=== PATIENT | male | born 1975 | race Caucasian/White ===

== ENCOUNTER 2023-07-22 07:09 | Inpatient (IN) | payer SELFPAY ==
[2023-07-22] MEDS ORDERED: ASPIRIN 81 MG CHEWABLE TABLET ONE ×2 (07:18→07:27)
[2023-07-22] MEDS ORDERED: METOPROLOL TARTRATE 5 MG/5 ML INJ IV ONE (07:27)
[2023-07-22] MEDS ORDERED: METOPROLOL TAR 50 MG TAB ONE (07:27)
[2023-07-22] MEDS ORDERED: NA CHLORIDE 0.9% 1,000 ML ONE ×2 (07:28→08:48)
[2023-07-22 07:44] LABS: SARS-CoV-2 Antigen Rapid Res Negative (Negative)
[2023-07-22 07:48] LABS: Absolute Lymphocytes (CBC) 1.4 K/uL (0.7-4.9); Hematocrit 47.5 % (39.6-49.0); MCV 85.1 fL (80-100); MPV 9.5 fL (7.6-11.3); Platelets 367 thou/uL (152-406); RBC Red Blood Cell Count 5.58 M/uL (4.33-5.43)
--- NOTE | 2023-07-22 07:48 | EDPHYS ---
Physician Documentation [facility] Name: Zeferino Moss Age: 48 yrs Sex: Male : 1975 Arrival Date: 07/22/2023 Time: 07:09 Bed 20 Private MD: ED Physician Yifan Ferraro HPI: 07/22 07:25 This 48 yrs old Male presents to ER via Ambulatory with complaints of Chest brennan Pain, Breathing Difficulty. 07:25 The patient or guardian reports chest pain that is located primarily in the anterior brennan chest wall, bilaterally. Onset: 3 day(s) ago. The pain does not radiate. Associated signs and symptoms: The patient has no apparent associated signs or symptoms. The chest pain is described as aching. Duration: The patient or guardian reports multiple episodes, with no pattern. Modifying factors: The symptoms are alleviated by remaining still, the symptoms are aggravated by activity, breathing, deep breath. Severity of pain: At its worst the pain was moderate in the emergency department the pain is unchanged. Historical: - Allergies: 07:17 No Known Allergies; ll1 - PMHx: 07:17 Hypertensive disorder; Diverticulitis; ll1 - PSHx: 07:17 None; ll1 - Immunization history:: Adult Immunizations up to date. - Social history:: Smoking status: Patient reports use of chewing tobacco. Patient denies any tobacco usage or history of. - Family history:: not pertinent. ROS: 07:25 Constitutional: Negative for fever, chills, and weight loss, Eyes: Negative for injury, brennan pain, redness, and discharge, ENT: Negative for injury, pain, and discharge, Neck: Negative for injury, pain, and swelling, Respiratory: Negative for shortness of breath, cough, wheezing, and pleuritic chest pain, Abdomen/GI: Negative for abdominal pain, nausea, vomiting, diarrhea, and constipation, Back: Negative for injury and pain, : Negative for injury, bleeding, discharge, and swelling, MS/Extremity: Negative for injury and deformity, Skin: Negative for injury, rash, and discoloration, Neuro: Negative for headache, weakness, numbness, tingling, and seizure, Psych: Negative for depression, anxiety, suicide ideation, homicidal ideation, and hallucinations, Allergy/Immunology: Negative for hives, rash, and allergies, Endocrine: Negative for neck swelling, polydipsia, polyuria, polyphagia, and marked weight changes, Hematologic/Lymphatic: Negative for swollen nodes, abnormal bleeding, and unusual bruising, 07:25 Cardiovascular: Positive for chest pain, of the chest, Exam: 07:25 Constitutional: This is a well developed, well nourished patient who is awake, alert, brennan and in no acute distress. Head/Face: Normocephalic, atraumatic. Eyes: Pupils equal round and reactive to light, extra-ocular motions intact. Lids and lashes normal. Conjunctiva and sclera are non-icteric and not injected. Cornea within normal limits. Periorbital areas with no swelling, redness, or edema. ENT: Nares patent. No nasal discharge, no septal abnormalities noted. Tympanic membranes are normal and external auditory canals are clear. Oropharynx with no redness, swelling, or masses, exudates, or evidence of obstruction, uvula midline. Mucous membranes moist. Neck: Trachea midline, no thyromegaly or masses palpated, and no cervical lymphadenopathy. Supple, full range of motion without nuchal rigidity, or vertebral point tenderness. No Meningismus. Chest/axilla: Normal chest wall appearance and motion. Nontender with no deformity. No lesions are appreciated. Cardiovascular: Regular rate and rhythm with a normal S1 and S2. No gallops, murmurs, or rubs. Normal PMI, no JVD. No pulse deficits. Respiratory: Lungs have equal breath sounds bilaterally, clear to auscultation and percussion. No rales, rhonchi or wheezes noted. No increased work of breathing, no retractions or nasal flaring. Abdomen/GI: Soft, non-tender, with normal bowel sounds. No distension or tympany. No guarding or rebound. No evidence of tenderness throughout. Back: No spinal tenderness. No costovertebral tenderness. Full range of motion. Male : Normal genitalia with no discharge or lesions. Skin: Warm, dry with normal turgor. Normal color with no rashes, no lesions, and no evidence of cellulitis. MS/ Extremity: Pulses equal, no cyanosis. Neurovascular intact. Full, normal range of motion. Neuro: Awake and alert, GCS 15, oriented to person, place, time, and situation. Cranial nerves II-XII grossly intact. Motor strength 5/5 in all extremities. Sensory grossly intact. Cerebellar exam normal. Normal gait. Psych: Awake, alert, with orientation to person, place and time. Behavior, mood, and affect are within normal limits. 07:25 ECG was reviewed by the Attending Physician. 07:45 Musculoskeletal/extremity: DVT Exam: No signs of deep vein thrombosis. no pain, no brennan swelling, no tenderness, negative Homans' sign noted on exam, no appreciated bluish discoloration, no erythema, no increased warmth, Vital Signs: 07:17 BP 124 / 98; Pulse 122; Resp 17; Temp 97.8; Pulse Ox 99% ; Weight 79.38 kg; Height 5 ll1 ft. 9 in. ; Pain 5/10; 07:38 BP 104 / 83; Pulse 95; Resp 14 S; Pulse Ox 100% on R/A; kc6 07:53 BP 91 / 71; Pulse 94; Resp 14 S; Pulse Ox 100% on R/A; kc6 08:07 BP 90 / 75; Pulse 92; Resp 16 S; Pulse Ox 100% on R/A; kc6 08:15 BP 84 / 70; Pulse 91; Resp 14 S; Pulse Ox 100% on R/A; kc6 08:18 BP 88 / 65; Pulse 92; Resp 14 S; Pulse Ox 100% on R/A; kc6 08:42 BP 87 / 72; Pulse 88; Resp 15 S; Pulse Ox 99% on R/A; kc6 08:45 BP 89 / 77; Pulse 81; Resp 13 S; Pulse Ox 100% on 2 lpm NC; kc6 09:04 BP 83 / 73; Pulse 86; Resp 15 S; Pulse Ox 100% on 2 lpm NC; kc6 09:08 BP 86 / 68; Pulse 88; Resp 14 S; Pulse Ox 100% on 2 lpm NC; kc6 07:17 Body Mass Index 25.84 (79.38 kg, 175.26 cm) ll1 07:17 Pain Scale: Adult ll1 Amber Coma Score: 07:29 Eye Response: spontaneous(4). Motor Response: obeys commands(6). Verbal Response: brennan oriented(5). Total: 15. MDM: 07:12 Patient medically screened. brennan 07:27 Differential diagnosis: abnormal EKG, acute myocardial infarction, acute pericarditis, brennan anxiety, chest wall pain, Cholelithiasis hiatal hernia, myocarditis, pancreatitis, peptic ulcer disease, pericarditis, pneumonia, pulmonary embolus, stable angina, thoracic aortic disection, unstable angina. HEART Score: ECG: Non specific repolarization disturbance / LBTB / PM (1), Age: > 45 and < 65 years (1), Risk Factors: > or = 3 Risk factors for atherosclerotic disease (2), [Hypertension] [+ Family HX] [Obesity]. The patient was given aspirin in the Emergency Department. Data reviewed: vital signs, nurses notes, lab test result(s), EKG, radiologic studies, CT scan, plain films. Consideration of Admission/Observation Patient was admitted/placed on observation. Escalation of care including admission/observation considered. I considered the following discharge prescriptions or medication management in the emergency department Medications were administered in the Emergency Department. See MAR. Independent interpretation of the following test(s) in the Emergency Department EKG: See my EKG interpretation above. Test considered but Not performed: Ultrasound no 2 d echo. Counseling: I had a detailed discussion with the patient and/or guardian regarding the historical points, exam findings, and any diagnostic results supporting the discharge/admit diagnosis, the presence of at least one elevated blood pressure reading (>120/80) during this emergency department visit, lab results, the need for further work-up and treatment in the hospital. 07/22 07:14 Order name: Basic Metabolic Panel; Complete Time: 08:27 [facility] 07/22 07:14 Order name: CBC with Diff; Complete Time: 08:09 [facility] 07/22 07:14 Order name: LFT's; Complete Time: 08:27 [facility] 07/22 07:14 Order name: Magnesium; Complete Time: 08:27 [facility] 07/22 07:14 Order name: NT PRO-BNP; Complete Time: 08:27 [facility] 07/22 07:14 Order name: PT-INR; Complete Time: 08:09 [facility] 07/22 07:14 Order name: Troponin HS; Complete Time: 08:27 [facility] 07/22 07:14 Order name: Flu; Complete Time: 08:09 [facility] 07/22 07:14 Order name: SARS RAPID; Complete Time: 07:45 [facility] 07/22 07:14 Order name: Blood Culture Adult (2) 07/22 07:14 Order name: Lactate w/ 2H reflex if indic.; Complete Time: 08:27 [facility] 07/22 07:14 Order name: Lipase; Complete Time: 08:27 brennan 07/22 07:14 Order name: Urinalysis w/ reflexes brennan 07/22 09:04 Order name: Lipid Profile EDMS 07/22 09:04 Order name: Lipid Profile EDMS 07/22 09:10 Order name: Basic Metabolic Panel EDMS 07/22 09:10 Order name: Basic Metabolic Panel EDMS 07/22 09:10 Order name: Basic Metabolic Panel EDMS 07/22 09:10 Order name: Basic Metabolic Panel EDMS 07/22 09:10 Order name: CBC with Automated Diff EDMS 07/22 09:10 Order name: CBC with Automated Diff EDMS 07/22 09:10 Order name: CBC with Automated Diff EDMS 07/22 09:10 Order name: Magnesium EDMS 07/22 09:10 Order name: Magnesium EDMS 07/22 09:10 Order name: Magnesium EDMS 07/22 09:10 Order name: Magnesium EDMS 07/22 09:10 Order name: Potassium EDMS 07/22 09:10 Order name: Potassium EDMS 07/22 09:10 Order name: Potassium EDMS 07/22 09:10 Order name: Potassium EDMS 07/22 07:14 Order name: XRAY Chest (1 view); Complete Time: 08:09 brennan 07/22 07:25 Order name: CT Chest For PE Angio brennan 07/22 09:04 Order name: Echo with Doppler EDMS 07/22 07:14 Order name: EKG; Complete Time: 07:15 brennan 07/22 09:04 Order name: CONS Physician Consult EDMS 07/22 07:14 Order name: Cardiac monitoring; Complete Time: 07:25 brennan 07/22 07:14 Order name: EKG - Nurse/Tech; Complete Time: 07:21 brennan 07/22 07:14 Order name: IV Saline Lock; Complete Time: 07:34 brennan 07/22 07:14 Order name: Labs collected and sent; Complete Time: 07:34 brennan 07/22 07:14 Order name: O2 Per Protocol; Complete Time: 07:16 brennan 07/22 07:14 Order name: O2 Sat Monitoring; Complete Time: 07:16 [facility] EC:25 Rate is 120 beats/min. Rhythm is regular. QRS [place] is Normal. [place] interval is normal. brennan QRS interval is normal. QT interval is normal. No Q waves. T waves are Normal. No ST changes noted. Clinical impression: Sinus tachycardia. Interpreted by me. Reviewed by me. Administered Medications: 08:03 Discontinued: ns 0.9% 1000 ml IV at 1 bolus Per protocol; 1000 mL bolus brennan 07:21 Not Given (Duplicate Order): aspirinchewable tablet 162 mg PO once brennan 07:34 Drug: Metoprolol PO 50 mg PO once Route: PO; kc6 07:49 Follow up: Response: No adverse reaction [facility] 07:34 Drug: Metoprolol IVP 5 mg IVP once; Hold for SBP <100 or HR <60. Route: IVP; Site: [facility] right forearm; 07:48 Follow up: Response: No adverse reaction; Blood pressure is lowered; Cardiac rhythm [facility] changed 07:34 Drug: Aspirin PO Chewable Tablet 324 mg PO once; 81 mg tablets x 4 Route: PO; kc6 07:53 Follow up: Response: No adverse reaction [facility] 07:34 Drug: NS 0.9% IV 1000 ml IV at 1 bolus Per protocol; 1000 mL bolus Route: IV; Rate: 1 kc6 bolus; Site: right forearm; 09:06 Follow up: Response: No adverse reaction; IV Status: Completed infusion; IV Intake: kc6 1000ml 08:07 Drug: Rocephin IV 2 grams IV at per protocol once; Given slow IV push per pharmarcy kc6 instructions Route: IV; Rate: per protocol; Site: right forearm; :07 Follow up: Response: No adverse reaction; IV Status: Completed infusion; IV Intake: [id number] 08:07 Drug: Zithromax IVPB 500 mg IVPB once over 1 hrs; mix in 250 mL NS Route: IVPB; Infused kc6 Over: 1 hrs; Site: right forearm; 09:07 Follow up: Response: No adverse reaction; IV Status: Completed infusion; IV Intake: kc6 250ml 08:07 Drug: Famotidine IVP 20 mg IVP once; dilute with 10 mL 0.9% NaCl; give over 2 minutes kc6 Route: IVP; Site: right forearm; :07 Follow up: Response: No adverse reaction 6 08:07 Drug: Enoxaparin Sub-Q 1 mg/kg Sub-Q once Route: Sub-Q; Site: abdomen; kc6 09:07 Follow up: Response: No adverse reaction kc6 09:00 Drug: NS 0.9% IV 500 ml IV at bolus once Route: IV; Rate: bolus; Site: right forearm; kc6 09:00 Drug: Insulin Regular Human IVP 5 units IVP once {Co-Signature: ll1 (Nic Flores RN).} Route: IVP; Site: right forearm; 09:19 Follow up: Response: No adverse reaction; Blood sugar is lowered kc6 09:00 Drug: Insulin Glargine Sub-Q 25 units Sub-Q once {Co-Signature: ll1 (Nic Flores RN).} Route: Sub-Q; Site: right upper arm; 09:19 Follow up: Response: No adverse reaction; Blood sugar is lowered kc6 09:00 Drug: Clopidogrel PO 300 mg PO once Route: PO; kc6 09:00 Drug: NS 0.9% IV 1000 ml IV at 125 ml/hr continuous Route: IV; Rate: 125 ml/hr; Site: [facility] right forearm; Disposition Summary: 07/22/23 08:47 Hospitalization Ordered Notes: Hospitalization Status: Inpatient Admission(07/22/23 08:47) brennan Provider: Micah Javed(07/22/23 08:47) brennan Location: Intensive Care Unit(07/22/23 08:47) brennan Condition: Fair(07/22/23 08:47) brennan Problem: new(07/22/23 08:47) brennan Symptoms: have improved(07/22/23 08:47) brennan Bed/Room Type: Standard(07/22/23 08:47) brennan Room Assignment: (07/22/23 08:47) brennan Diagnosis - Chest pain on breathing(07/22/23 08:47) brennan - Non ST elevation DC brennan - Type 2 diabetes mellitus with hyperglycemia - new onset brennan - Elevated white blood cell count brennan - Dyspnea(07/22/23 08:47) brennan Forms: - Medication Reconciliation Form brennan - SBAR form brennan - Leadership Thank You Letter brennan Signatures: Dispatcher [employer] Yifan Bustamante MD MD cha Lewis, Lynsay, RN RN ll1 Rama Castro RN RN kc6 Nic Flores RN ll1 Corrections: (The following items were deleted from the chart) 08:26 07:48 Inpatient Admission brennan brennan 07:48 Micah Javed cha brennan : 07:48 Telemetry/MedSurg (Inpatient) brennan brennan 07:48 Fair brennan brennan 07:48 new brennan brennan 07:48 have improved brennan brennan 07:48 Standard brennan brennan : 07:48 brennan brennan 08: 07:48 Chest pain on breathing brennan brennan 07:48 Essential (primary) hypertension brennan brennan 07:48 Dyspnea brennan brennan 07:48 Acute interstitial pneumonitis brennan brennan : 09:04 Basic Metabolic Panel ordered. EDMS EDMS 09: 09:04 CBC with Automated Diff ordered. EDMS EDMS
--- NOTE | 2023-07-22 07:48 | ER ---
Nurse's Notes [facility] Name: Zeferino Moss Age: 48 yrs Sex: Male : 1975 Arrival Date: 07/22/2023 Time: 07:09 Bed 20 Private MD: Diagnosis: Chest pain on breathing;Non ST elevation NE;Type 2 diabetes mellitus with hyperglycemia-new onset;Elevated white blood cell count;Dyspnea Presentation: 07/22 07:17 Chief complaint: Patient states: CP/SOB since Friday. No fever or cough. Was unloading ll1 feed bags on Friday when this all started. Coronavirus screen: Vaccine status: Patient reports being unvaccinated. Client denies travel out of the [place] in the last 14 days. At this time, the client does not indicate any symptoms associated with coronavirus-19. Ebola Screen: Patient denies travel to an Ebola-affected area in the 21 days before illness onset. Initial Sepsis Screen: Does the patient meet any 2 criteria? No. Patient's initial sepsis screen is negative. Does the patient have a suspected source of infection? No. Patient's initial sepsis screen is negative. Risk Assessment: Do you want to hurt yourself or someone else? Patient reports no desire to harm self or others. Onset of symptoms was July 20, 2023. 07:17 Method Of Arrival: Ambulatory ll1 07:17 Acuity: SCOT 2 ll1 Triage Assessment: 07:20 General: Appears in no apparent distress. Behavior is calm, cooperative, appropriate ll1 for age. Pain: Complains of pain in chest Pain currently is 5 out of 10 on a pain scale. Cardiovascular: Reports chest pain, shortness of breath. Historical: - Allergies: 07:17 No Known Allergies; ll1 - PMHx: 07:17 Hypertensive disorder; Diverticulitis; ll1 - PSHx: 07:17 None; ll1 - Immunization history:: Adult Immunizations up to date. - Social history:: Smoking status: Patient reports use of chewing tobacco. Patient denies any tobacco usage or history of. - Family history:: not pertinent. Screenin:14 [facility] ED Fall Risk Assessment (Adult) History of falling in the last 3 months, kc6 including since admission No falls in past 3 months (0 pts) Confusion or Disorientation No (0 pts) Intoxicated or Sedated No (0 pts) Impaired Gait No (0 pts) Mobility Assist Device Used No (0 pt) Altered Elimination No (0 pt) Score/Fall Risk Level 0 - 2 = Low Risk. Abuse screen: Denies threats or abuse. Denies injuries from another. Nutritional screening: No deficits noted. Tuberculosis screening: No symptoms or risk factors identified. Assessment: 07:20 General: Appears in no apparent distress. comfortable, well groomed, well developed, kc6 Behavior is calm, cooperative, appropriate for age. Pain: Complains of pain in chest Pain does not radiate. Pain began 2-3 days ago. Neuro: Level of Consciousness is awake, alert, obeys commands, Oriented to person, place, time, situation, Appropriate for age. Cardiovascular: Heart tones S1 S2 present Capillary refill < 3 seconds Rhythm is sinus tachycardia. Respiratory: Reports shortness of breath Airway is patent Trachea midline Respiratory effort is even, unlabored, Respiratory pattern is regular, symmetrical, Breath sounds are clear bilaterally. GI: No signs and/or symptoms were reported involving the gastrointestinal system. : No signs and/or symptoms were reported regarding the genitourinary system. EENT: No signs and/or symptoms were reported regarding the EENT system. Derm: No signs and/or symptoms reported regarding the dermatologic system. Skin is intact, is healthy with good turgor, Skin is pink, warm \T\ dry. Musculoskeletal: No signs and/or symptoms reported regarding the musculoskeletal system. Circulation, motion, and sensation intact. Capillary refill < 3 seconds, Range of motion: intact in all extremities. 08:20 Reassessment: Patient appears in no apparent distress at this time. No changes from kc6 previously documented assessment. Patient and/or family updated on plan of care and expected duration. Pain level reassessed. Patient is alert, oriented x 3, equal unlabored respirations, skin warm/dry/pink. 09:00 Reassessment: Patient appears in no apparent distress at this time. No changes from kc6 previously documented assessment. Patient and/or family updated on plan of care and expected duration. Pain level reassessed. Patient is alert, oriented x 3, equal unlabored respirations, skin warm/dry/pink. Yoan, PT ESCORT, and Dr. Ruelas at bedside speaking with patient. plan is for patient to go for cardiac cath Patient denies pain at this time. Patient states feeling better. Patient states symptoms have improved. 09:15 Reassessment: sanitation laborer nurse at bedside obtaining consent from patient and preparing kc6 for preop. Vital Signs: 07:17 BP 124 / 98; Pulse 122; Resp 17; Temp 97.8; Pulse Ox 99% ; Weight 79.38 kg; Height 5 ll1 ft. 9 in. ; Pain 5/10; 07:38 BP 104 / 83; Pulse 95; Resp 14 S; Pulse Ox 100% on R/A; kc6 07:53 BP 91 / 71; Pulse 94; Resp 14 S; Pulse Ox 100% on R/A; kc6 08:07 BP 90 / 75; Pulse 92; Resp 16 S; Pulse Ox 100% on R/A; kc6 08:15 BP 84 / 70; Pulse 91; Resp 14 S; Pulse Ox 100% on R/A; kc6 08:18 BP 88 / 65; Pulse 92; Resp 14 S; Pulse Ox 100% on R/A; kc6 08:42 BP 87 / 72; Pulse 88; Resp 15 S; Pulse Ox 99% on R/A; kc6 08:45 BP 89 / 77; Pulse 81; Resp 13 S; Pulse Ox 100% on 2 lpm NC; kc6 09:04 BP 83 / 73; Pulse 86; Resp 15 S; Pulse Ox 100% on 2 lpm NC; kc6 09:08 BP 86 / 68; Pulse 88; Resp 14 S; Pulse Ox 100% on 2 lpm NC; kc6 07:17 Body Mass Index 25.84 (79.38 kg, 175.26 cm) ll1 07:17 Pain Scale: Adult ll1 Vitals: 07:38 Cardiac Rhythm Assessment Sinus rhythm. kc6 Amber Coma Score: 07:29 Eye Response: spontaneous(4). Motor Response: obeys commands(6). Verbal Response: brennan oriented(5). Total: 15. ED Course: 07:10 Patient arrived in ED. rg4 07:12 Yifan Ferraro MD is Attending Physician. brennan 07:14 Rama Castro RN is Primary Nurse. kc6 07:14 Patient maintains SpO2 saturation greater than 95% on room air. kc6 07:14 Patient has correct armband on for positive identification. Bed in low position. Call kc6 light in reach. Side rails up X 1. Client placed on continuous cardiac and pulse oximetry monitoring. NIBP monitoring applied. hospital monitor on. 07:14 Arm band placed on. kc6 07:20 Triage completed. ll1 07:21 EKG done, by ED staff, reviewed by Yifan Ferraro MD. em1 07:25 SARS RAPID Sent. kc6 07:25 Flu Sent. kc6 07:30 Initial lab(s) drawn, by [facility], sent to lab. First set of blood cultures drawn. Inserted em1 saline lock: 20 gauge in right forearm, using aseptic technique. Blood collected. 07:36 Lipase Sent. em1 07:36 Lactate w/ 2H reflex if indic. Sent. em1 07:37 Basic Metabolic Panel Sent. em1 07:37 CBC with Diff Sent. em1 07:37 LFT's Sent. em1 07:37 Magnesium Sent. em1 07:37 NT PRO-BNP Sent. em1 07:37 PT-INR Sent. em1 07:37 Troponin HS Sent. em1 07:40 XRAY Chest (1 view) In Process Unspecified. EDMS 07:47 Micah Javed is Hospitalizing Provider. brennan 08:43 CT Chest For PE Angio In Process Unspecified. EDMS 08:46 Micah Javed is Hospitalizing Provider. brennan 09:24 No provider procedures requiring assistance completed. Patient admitted, IV remains in kc6 place. 10:[address] [facility]. bd 13:24 Provided Education on: n/a. as6 13:50 pt accepted in transfer to [facility] b bed [address] sands admin bd approval given by carmel saucedo rn. Administered Medications: 08:03 Discontinued: ns 0.9% 1000 ml IV at 1 bolus Per protocol; 1000 mL bolus brennan 07:21 Not Given (Duplicate Order): aspirinchewable tablet 162 mg PO once brennan 07:34 Drug: Metoprolol PO 50 mg PO once Route: PO; kc6 07:49 Follow up: Response: No adverse reaction kc6 07:34 Drug: Metoprolol IVP 5 mg IVP once; Hold for SBP <100 or HR <60. Route: IVP; Site: [facility] right forearm; 07:48 Follow up: Response: No adverse reaction; Blood pressure is lowered; Cardiac rhythm kc changed 07:34 Drug: Aspirin PO Chewable Tablet 324 mg PO once; 81 mg tablets x 4 Route: PO; kc6 07:53 Follow up: Response: No adverse reaction kc6 07:34 Drug: NS 0.9% IV 1000 ml IV at 1 bolus Per protocol; 1000 mL bolus Route: IV; Rate: 1 kc6 bolus; Site: right forearm; 09:06 Follow up: Response: No adverse reaction; IV Status: Completed infusion; IV Intake: kc6 1000ml 08:07 Drug: Rocephin IV 2 grams IV at per protocol once; Given slow IV push per pharmarcy kc6 instructions Route: IV; Rate: per protocol; Site: right forearm; : Follow up: Response: No adverse reaction; IV Status: Completed infusion; IV Intake: [id number] 08:07 Drug: Zithromax IVPB 500 mg IVPB once over 1 hrs; mix in 250 mL NS Route: IVPB; Infused kc6 Over: 1 hrs; Site: right forearm; : Follow up: Response: No adverse reaction; IV Status: Completed infusion; IV Intake: kc6 250ml 08:07 Drug: Famotidine IVP 20 mg IVP once; dilute with 10 mL 0.9% NaCl; give over 2 minutes kc6 Route: IVP; Site: right forearm; : Follow up: Response: No adverse reaction kc6 08:07 Drug: Enoxaparin Sub-Q 1 mg/kg Sub-Q once Route: Sub-Q; Site: abdomen; kc6 09:07 Follow up: Response: No adverse reaction kc6 09:00 Drug: NS 0.9% IV 500 ml IV at bolus once Route: IV; Rate: bolus; Site: right forearm; kc6 09:00 Drug: Insulin Regular Human IVP 5 units IVP once {Co-Signature: ll1 (Nic Flores RN).} Route: IVP; Site: right forearm; : Follow up: Response: No adverse reaction; Blood sugar is lowered kc6 09:00 Drug: Insulin Glargine Sub-Q 25 units Sub-Q once {Co-Signature: ll1 (Nic Flores6 RN).} Route: Sub-Q; Site: right upper arm; : Follow up: Response: No adverse reaction; Blood sugar is lowered 6 09:00 Drug: Clopidogrel PO 300 mg PO once Route: PO; kc6 09:00 Drug: NS 0.9% IV 1000 ml IV at 125 ml/hr continuous Route: IV; Rate: 125 ml/hr; Site: kc6 right forearm; Medication: 09:24 VIS not applicable for this client. kc6 Intake: 09:06 IV: 1000ml; Total: 1000ml. kc6 09:07 IV: 50ml; Total: 1050ml. kc6 09:07 IV: 250ml; Total: 1300ml. kc6 Outcome: 07:48 Decision to Hospitalize by Provider. brennan 08:47 Decision to Hospitalize by Provider. brennan 09:24 Admitted to [facility] accompanied by nurse, family with patient, via stretcher, with kc6 oxygen, with chart, :24 Condition: stable 09:24 Instructed on the need for admit, 09:25 Patient left the ED. kc6 13:23 Transferred by ground EMS to [facility], Transfer form completed. as6 Note: Report called to Noman Dunham RN at [facility] Signatures: Dispatcher [employer] EDAshleigh Abreu Corey, MD MD cha Martinez, Sebas em1 Parth, Deborah rg4 Nic Flores, VANESSA RN ll1 Jovan Carvalho RN RN as6 Rama Castro RN RN [email or web address] Nic Flores RN ll1 Corrections: (The following items were deleted from the chart) 07:58 07:17 Acuity: SCOT 3 ll1 ll1 09:15 09:00 Reassessment: Patient appears in no apparent distress at this time. No changes kc6 from previously documented assessment. Patient and/or family updated on plan of care and expected duration. Pain level reassessed. Patient is alert, oriented x 3, equal unlabored respirations, skin warm/dry/pink. kc6
[2023-07-22] MEDS ORDERED: ENOXAPARIN 80 MG/0.8 ML SQ ONE (07:50)
[2023-07-22] MEDS ORDERED: CEFTRIAXONE 2000 MG/VIAL ONE (07:50)
[2023-07-22] MEDS ORDERED: FAMOTIDINE 20 MG/2 ML VIAL IV ONE (07:50)
[2023-07-22] MEDS ORDERED: AZITHROMYCIN 500 MG INJ IVPB ONE (07:50)
[2023-07-22] MEDS ORDERED: NA CHLORIDE 0.9% 250 ML ONE (07:51)
--- NOTE | 2023-07-22 07:51 | RAD REPORT ---
EXAM DESCRIPTION: Elissa Single View07/22/2023 7:38 am CLINICAL HISTORY: DYSPNEA COMPARISON: Abdomen Pelvis W Contrast dated 02/28/2017 TECHNIQUE: Portable AP view of the chest. FINDINGS: The lungs show mild central interstitial prominence and prominence of the central vascular markings, without focal opacity. No pneumothorax or effusion. The cardiomediastinal contours are un remarkable. IMPRESSION: Mild central vascular prominence may relate to congestion/CHF.
[2023-07-22 08:21] LABS: Albumin 3.9 g/dL (3.4-5.0); Bilirubin Direct 0.2 mg/dL (0-0.2); Bilirubin Indirect, Calculated 0.9 mg/dL (0.2-0.8); Bilirubin Total 1.1 mg/dL (0.2-1.0); Potassium 3.9 mEq/L (3.5-5.1); Protein, Total 7.5 g/dL (6.4-8.2); Troponin High Sensitivity 13598.3 pg/mL (<58.9)
[2023-07-22] MEDS ORDERED: CLOPIDOGREL 75 MG TABLET ONE (08:46)
[2023-07-22] MEDS ORDERED: INSULIN REGULAR (HUMAN) 100 UNIT/ML ONE (08:47)
[2023-07-22] MEDS ORDERED: INSULIN GLARGINE 100 UNIT/ML SQ ONE (08:47)
[2023-07-22] MEDS ORDERED: NA CHLORIDE 0.9% 500 ML ONE (08:47)
--- NOTE | 2023-07-22 08:54 | P.HP ---
Certification for Inpatient Patient admitted to: Observation With expected LOS: >2 Midnights Patient will require the following post-hospital care: None Practitioner: I am a practitioner with admitting privileges, knowledge of patient current condition, hospital course, and medical plan of care. Services: Services provided to patient in accordance with Admission requirements found in Title 42 Section 412.3 of the Code of Federal Regulations Patient History Date of Service: 07/22/23 Reason for admission: chest pain r/o [place] History of Present Illness: Zeferino Moss is a 48-year-old male with past medical history hypertensive disorder, and diverticulitis who presents to the ED complaining of chest pain and shortness of breath associated with dizziness since Friday. He reports chest pain as pressure to the mid-sternum. Troponin elevated at greater than 13,000, BNP 1579, hyper glycemic at 423, lactic acidostic at 6.0, leukocytosis 15.3. Patient has a an extensive cardiac history in his family, his father with sudden [place]. Dr. Michel was consulted and took him to the [facility]. Initial vitals BP 124 / 98; Pulse 122; Resp 17; Temp 97.8; Pulse Ox 99% Chest x-ray reports "The lungs show mild central interstitial prominence and prominence of the central vascular markings, without focal opacity. No pneumothorax or effusion. The cardiomediastinal contours are unremarkable. Mild central vascular prominence may relate to congestion/CHF." CTA chest angio reports "No evidence of acute central pulmonary emboli. Central interstitial prominence and bilateral layering moderate effusions, suggestive of central venous congestion or CHF. There are 2 right upper lobe heterogeneous ground-glass opacities, favored to relate to an infectious/inflammatory process or sequelae of limited aspiration. A follow-up CT in 1-3 months is recommended to evaluate for their resolution. EKG shows sinus tachycardia, incomplete left bundle branch block, QT/QTc 316/446. Zeferino will be admitted to hospitalist service for further evaluation and treatment of chest pain rule out [place]. Allergies No Known Allergies Allergy (Verified 04/18/17 07:36) Home Medications: Acetaminophen [Tylenol Extra Strength] 2 tab PO PRN 04/18/17 - Past Medical/Surgical History Diabetic: No -: anemia - Social History Alcohol use: Yes CD- Drugs: Yes Caffeine use: Yes Physical Examination - Studies Laboratory Data (last 24 hrs) 07/22/23 07/22/23 07/22/23 07:30 07:30 07:30 WBC 15.30 H Hgb 16.0 Hct 47.5 Plt Count 367 PT 11.0 INR 1.00 Sodium 130 L Potassium 3.9 BUN 11 Creatinine 1.30 Glucose 438 H* Magnesium 2.0 Total Bilirubin 1.1 H AST 86 H ALT 39 Alkaline Phosphatase 163 H Lipase 23 Microbiology Data (last 24 hrs): 07/22/23 07:24 Nasopharnyx Influenza Type A Antigen Screen - Final 07/22/23 07:24 Nasopharnyx Influenza Type B Antigen Screen - Final Assessment and Plan - Plan Assessment and plan NSTEMI Hypotensive post heart cath Congestive heart failure Dr. Ruelas consulted and taken to [facility] Echo pending Troponin 13,598.3, serial pending BNP 1579 Chest x-ray showing mild central vascular prominence may relate to congestion/CHF TSH/free T4 pending Lasix, Lovenox, Rocephin, Zithromax given in the ED Continue Zithromax daily Strict I's and O's and daily weights Leukocytosis Lactic acidosis WBC 15.3, lactic acid 6.0 with repeat pending Hyperglycemia Serum glucose 423 Accu-Chek with sliding scale insulin A1c pending DVT PPx Lovenox Full code LOS 2 to 3 days Discharge Plan: Home Plan to discharge in: 48 Hours - Advance Directives Does patient have a Living Will: No Does patient have a Durable POA for Healthcare: No
[2023-07-22] MEDS ORDERED: NITROGLYCERIN 0.4 MG/TAB SL PRN (08:57)
--- NOTE | 2023-07-22 09:09 | RAD REPORT ---
EXAM DESCRIPTION: CT - Chest For Pe Angio - 07/22/2023 8:41 am CLINICAL HISTORY: Dyspnea;Chest pain COMPARISON: Chest Single View dated 07/22/2023 TECHNIQUE: Thin axial CT images of the chest were obtained following administration of 100 mL Isovue 370 IV contrast. Multiplanar reconstructions, and maximum intensity projection reconstructions were generated and reviewed. Exam utilizes a protocol for optimal evaluation of pulmonary arterial tree. All CT scans are performed using dose optimization technique as appropriate and may include automated exposure control or mA/KV adjustment according to patient size. FINDINGS: Pulmonary arteries are normal. No emboli or other suspicious finding. No acute or signific ant aorta findings. Bilateral moderate layering pleural effusions. Bilateral central interlobular septal thickening. Ovoid heterogeneous ground-glass opacities largest in the central right upper lobe measuring 2.9 cm. A smaller peripheral and more superior right upper lobe opacity measuring 2.1 cm. No pleural thickening. No pneumothorax. No abnormal mediastinal or hilar masses or lymphadenopathy seen. No chest wall mass or abnormal axill iary lymphadenopathy. IMPRESSION: No evidence of acute central pulmonary emboli. Central interstitial prominence and bilateral layering moderate effusions, suggestive of central veno us congestion or CHF. There are 2 right upper lobe heterogeneous ground-glass opacities, favored to relate to an infectious /inflammatory process or sequelae of limited aspiration. A follow-up CT in 1-3 months is recommended to evaluate for their resolution.
[2023-07-22] MEDS ORDERED: VERAPAMIL HCL 10 MG/4 ML VIAL IV ONE (09:36)
[2023-07-22] MEDS ORDERED: HEPA 1000U/500MLS 2,000 UNIT/1,000 ML BAG IV ONE (09:36)
[2023-07-22] MEDS ORDERED: FENTANYL CITR 100 MCG/2 ML ONE (09:36)
[2023-07-22] MEDS ORDERED: HEPARIN 5000 UNIT/ML 1 ML VIAL ONE (09:36)
[2023-07-22] MEDS ORDERED: LIDOCAINE 1% 20 ML MDV ONE (09:36)
[2023-07-22] MEDS ORDERED: MIDAZOLAM HCL 2 MG/2 ML INJ ONE (09:36)
[2023-07-22] MEDS ORDERED: Phenylephrine HCl 10 MG/ML 1 ML VIAL ONE (09:37)
[2023-07-22] MEDS ORDERED: FUROSEMIDE 20 MG/ 2ML VIAL ONE (09:44)
[2023-07-22] MEDS ORDERED: INSULIN REGULAR (HUMAN) 100 UNIT/ML SQ SCH (11:30)
[2023-07-22 11:39] VITALS: TEMP 97.8
--- NOTE | 2023-07-22 12:54 | EKG ---
Test Date: 2023-07-22 Test Time: 07:17:32 Tufting Machine Fixer: SISI MEASUREMENT RESULTS: Intervals: Rate: 120 CT: 134 QRSD: 106 QT: 316 QTc: 446 [place]: P: 59 CT: 134 QRS: 77 T: -84 INTERPRETIVE STATEMENTS: Sinus tachycardia Incomplete left bundle branch block Left ventricular hypertrophy with repolarization abnormality Abnormal ECG No previous ECG available for comparison Electronically Signed On 07-22-23 12:52:17 SPREADING MACHINE OPERATOR by Jarrod Ruelas
[2023-07-22 13:27] VITALS: O2SAT 100
--- NOTE | 2023-07-22 14:27 | CON ---
Date of Consultation: 07/22/2023 Reason For Consultation: Chest pain. History Of Present Illness: This is a 48-year-old male who has been having chest pain for a week, pr essure-like, radiates to the neck and the shoulder. Finally presented to the emergency room. He is nauseated and appeared pale upon evaluation. No history of cardiac disease. Has history of diabetes , hypertension. Past Medical History: As outlined above. Medications: Refer to reconciliation sheet for detailed list. Allergies: NO KNOWN DRUG ALLERGIES. Family History: No premature coronary artery disease or cancer. Social History: Active smoker. Does not drink. Does not drugs. Review of Systems: All systems reviewed and they were negative except as mentioned in the HPI. Physical Examination: Vital Signs: Reviewed. Head and Neck: Pupils are equal, reactive to light. Intact eye movements. No JVD. No cervical lym phadenopathy. Neck is supple. Thyroid is not enlarged. Lungs: Clear to auscultation bilaterally. No rhonchi, rales, or crackles. No accessory muscle use. HEART: Regular rate and rhythm. No extra sounds. Abdomen: Soft, nontender. Bowel sounds positive. No organomegaly. No masses or hernia. No rigidi ty or rebound. Extremities: No clubbing, cyanosis. Intact pulses. Skin: No rash or nodule. Neurologic: Alert, awake, oriented x3. No acute focal deficits appreciated. Investigations: Labs reviewed. Assessment/recommendation: Acute [id number] myocardial infarction. Taken emergently to the [facility] and he had severe multivessel coronary artery disease, CHEMISTRY INTERN RCA. CHEMISTRY INTERN more collaterals from the LAD that is heavily diseased. Best option is to transfer for CABG. Discussed the case with the [facility] hospitalist and emergency room physician. /ELVIS Voice ID: [id number] Report ID: [id number]
[2023-07-22 14:51] VITALS: BP 95/54
--- NOTE | 2023-07-22 18:45 | P.SSS ---
Patient History Date of Service: 07/22/23 Reason for admission: chest pain r/o [place] History of Present Illness: Zeferino Moss is a 48-year-old male with past medical history hypertensive disorder, and diverticulitis who presents to the ED complaining of chest pain and shortness of breath associated with dizziness since Friday. He reports chest pain as pressure to the mid-sternum. Troponin elevated at greater than 13,000, BNP 1579, hyperglycemic at 423, lactic acidosis at 6.0, leukocytosis 15.3. Patient has a an extensive cardiac history in his family, his father with sudden [place]. Dr. Ruelas was consulted and took him to the [facility]. Initial vitals BP 124 / 98; Pulse 122; Resp 17; Temp 97.8; Pulse Ox 99%. Chest x-ray reports "The lungs show mild central interstitial prominence and prominence of the central vascular markings, without focal opacity. No pneumothorax or effusion. The cardiomediastinal contours are unremarkable. Mild central vascular prominence may relate to congestion/CHF." CTA chest angio reports "No evidence of acute central pulmonary emboli. Central interstitial prominence and bilateral layering moderate effusions, suggestive of central venous congestion or CHF. There are 2 right upper lobe heterogeneous ground-glass opacities, favored to relate to an infectious/inflammatory process or sequelae of limited aspiration. A follow-up CT in 1-3 months is recommended to evaluate for their resolution. EKG shows sinus tachycardia, incomplete left bundle branch block, QT/QTc 316/446. Zeferino will be admitted to hospitalist service for further evaluation and treatment of chest pain rule out [place] and inpatient LHC. Allergies No Known Allergies Allergy (Verified 04/18/17 07:36) Home Medications: Acetaminophen [Tylenol Extra Strength] 2 tab PO PRN 04/18/17 - Past Medical/Surgical History Diabetic: No -: anemia - Social History Alcohol use: Yes CD- Drugs: Yes Caffeine use: Yes Review of Systems Respiratory: Shortness of Breath Cardiovascular: Chest Pain, Light Headedness Physical Examination - Vital Signs Temperature: 97.8 F Blood Pressure: 95/54 Pulse: 97 Respirations: 18 - Physical Exam General: Alert, In no apparent distress, Oriented x3 HEENT: Atraumatic, Normocephalic, PERRLA Neck: Supple, 2+ carotid pulse no bruit, JVD not distended Respiratory: Clear to auscultation bilaterally, Normal air movement Cardiovascular: Normal pulses, Regular rate/rhythm, Normal S1 S2 Capillary refill: <2 Seconds Gastrointestinal: Normal bowel sounds, Soft and benign Musculoskeletal: No clubbing, No swelling, No contractures Integumentary: No breakdown, No significant lesion, No tenderness/swelling Neurological: Normal speech, Normal strength at 5/5 x4 extr, Normal tone - Studies Laboratory Data (last 24 hrs) 07/22/23 07/22/23 07/22/23 07:30 07:30 07:30 WBC 15.30 H Hgb 16.0 Hct 47.5 Plt Count 367 PT 11.0 INR 1.00 Sodium Potassium BUN Creatinine Glucose Magnesium Total Bilirubin AST ALT Alkaline Phosphatase Triglycerides 196 H Cholesterol 224 H HDL Cholesterol 50 Cholesterol/HDL Ratio 4.48 Lipase 07/22/23 07:30 WBC Hgb Hct Plt Count PT INR Sodium 130 L Potassium 3.9 BUN 11 Creatinine 1.30 Glucose 438 H* Magnesium 2.0 Total Bilirubin 1.1 H AST 86 H ALT 39 Alkaline Phosphatase 163 H Triglycerides Cholesterol HDL Cholesterol Cholesterol/HDL Ratio Lipase 23 Microbiology Data (last 24 hrs): 07/22/23 07:24 Nasopharnyx Influenza Type A Antigen Screen - Final 07/22/23 07:24 Nasopharnyx Influenza Type B Antigen Screen - Final Treatment Summary: Acute NSTEMI -Emergent to the [facility] with Dr. Ruelas -Per Dr. Ruelas's note: Severe multivessel coronary artery disease, SENIOR QUALITY ENGINEER RCA. SENIOR QUALITY ENGINEER more collaterals from the LAD that is heavily diseased. Best option is to transfer to for CABG. Patient was promptly transferred to [facility] s/p LH - Disposition Disposition: TRANSFER TO [facility] Condition: GOOD Time Spent Managing Pts Care (In Minutes): 50
--- NOTE | 2023-07-22 19:33 | OP ---
Date of Procedure: 07/22/2023 Surgeon: HANNAH GARZA Procedure Performed: Selective coronary angiogram. Indication: [id number] myocardial infarction. Access: Right radial artery 6-Cymro closed with TR band. Complications: None. Bleeding: Less than 20 mL. Description Of Procedure: After risks, benefits, and alternatives were explained, the patient agreed to the procedure and signed informed consent. The patient was brought to the cardiac catheterizatio n laboratory, prepped and draped in usual sterile fashion. Then, I accessed right radial artery usin g pediatric micropuncture kit, placed a 6-Cymro slender sheath, and took 5-Cymro tiger 4 catheter i nto the aortic root, engaged left main, took standard views, and then the RCA, took standard views, a nd then I removed the catheter and the sheath, placed TR band with good hemostasis. Findings: 1.Left main is moderate size and normal. 2.LAD, diffuse proximal to mid 80% to 90% stenosis, very long, and the vessel becomes small because it is underfilled and gives collaterals to the OM and to the PDA. 3.Left circumflex; proximal 90% stenosis. OM has 99% to 100% stenosis with collaterals from the LAD . 4.RCA, it is dominant and with proximal 70%, proximal to mid 80%, mid to distal 90% to 99% and then become FOLLOW UP CLERK with collaterals from the left. Conclusion: Severe multivessel coronary artery disease. Recommendation: Transfer for CABG emergently. SR/MODL Voice ID: [id number] Report ID: [id number]
[2023-07-23] MEDS ORDERED: AZITHROMYCIN IV 500 MG in NA CHLORIDE 0.9% 250 ML IVPB SCH (09:00)
== END 2023-07-22 14:00 | disposition home or self-care (01) | DRG 281 ==
LOC: ER 07:09 → ERHOLD 08:57
PROVIDERS: ADMIT Internal Medicine; ATTEND Internal Medicine
PROC: 4A023N7 Measurement of Cardiac Sampling and Pressure, Left Heart, Percutaneous Approach (ICD-10-PCS; principal; 2023-07-22)
PROC: B2111ZZ Fluoroscopy of Multiple Coronary Arteries using Low Osmolar Contrast (ICD-10-PCS; 2023-07-22)
DX: I21.4 Non-ST elevation (NSTEMI) myocardial infarction (principal); E87.20 Acidosis, unspecified; I10 Essential (primary) hypertension; E11.65 Type 2 diabetes mellitus with hyperglycemia; D72.829 Elevated white blood cell count, unspecified; I25.10 Atherosclerotic heart disease of native coronary artery without angina pectoris; F17.220 Nicotine dependence, chewing tobacco, uncomplicated; Z11.52 Encounter for screening for COVID-19
CPT/HCPCS: 36415; 71045; 71275; 76937; 80048; 80061; 80076; 82947; 83605; 83690; 83735; 83880; 84484; 85025; 85610; 87040; 87804; 87811; 93005; 93454; 99152; 99153; C1893; J0696; J1644; J1815; J1940; J2001; J2250; J2371; J3010; J7030; J7040; J7050; Q9966; Q9967